=== PATIENT | male | born 1965 | race Two or more races ===

== ENCOUNTER → 2018-07-02 | Outpatient (CLI) | payer OTHER | END | disposition home or self-care (01) | LOC: NUCLEAR 08:30 | DX: C18.0 Malignant neoplasm of cecum (principal); C78.4 Secondary malignant neoplasm of small intestine | CPT/HCPCS: 78815; A9552 ==

== ENCOUNTER → 2019-01-27 | Outpatient (CLI) | payer OTHER | END | disposition home or self-care (01) | LOC: NUCLEAR 01-15 07:00 | DX: C18.0 Malignant neoplasm of cecum (principal); C78.4 Secondary malignant neoplasm of small intestine; Z08 Encounter for follow-up examination after completed treatment for malignant neoplasm | CPT/HCPCS: 78815; A9552 ==

== ENCOUNTER 2019-08-09 15:15 | Emergency (ER) | payer OTHER ==
[~2019-08-09] VITALS: Ht 177.8 cm; Wt 102.5 kg
[2019-08-09] MEDS ORDERED: DICY20TA (15:38)
[2019-08-09] MEDS ORDERED: PEPCID20 MG (15:38)
[2019-08-09] MEDS ORDERED: INTESTINEX680 M1 (15:38)
== END 2019-08-09 19:18 | disposition home or self-care (01) ==
LOC: ER 15:15
DX: K52.9 Noninfective gastroenteritis and colitis, unspecified (principal)

== ENCOUNTER 2019-08-18 17:12 | Emergency (ER) | payer OTHER ==
[~2019-08-18] VITALS: Ht 177.8 cm; Wt 106.6 kg
[~2019-08-18 17:12] MED LIST: DICY20TA; INTESTINEX680 M1; PEPCID20 MG
[2019-08-18] MEDS ORDERED: ONDANSETRON ODT8 MG (17:40)
[2019-08-18] MEDS ORDERED: LEVSIN0.125 MG (17:41)
[2019-08-18] MEDS ORDERED: [UNRECOGNIZED DRUG - OTHER] (17:41)
[2019-08-18] MEDS ORDERED: LOPERAMIDE2 MG (17:42)
[2019-08-18] MEDS ORDERED: ZEGERID OTC 201 EACH (17:42)
== END 2019-08-18 21:07 | disposition home or self-care (01) ==
LOC: ER 17:12
DX: K29.70 Gastritis, unspecified, without bleeding (principal)

== ENCOUNTER 2019-10-21 08:38 | Outpatient (CLI) | payer OTHER ==
[~2019-10-21 08:38] MED LIST changes: +LEVSIN0.125 MG; +LOPERAMIDE2 MG; +ONDANSETRON ODT8 MG; +ZEGERID OTC 201 EACH; +[UNRECOGNIZED DRUG - OTHER]
== END 2019-10-21 10:00 | disposition home or self-care (01) ==
LOC: NUCLEAR 08:38
DX: K31.84 Gastroparesis (principal)
CPT/HCPCS: 78264; A9541

== ENCOUNTER 2019-11-02 07:39 | Inpatient (IN) | payer OTHER ==
[~2019-11-02] VITALS: Ht 177.8 cm; Wt 86.2 kg
[2019-11-02] MEDS ORDERED: SYNTHROID75 MCG PO (08:02)
--- NOTE | 2019-11-02 08:03 | NUR ---
PACIENTE MASCULINO ALERTA Y ORIENTADO. PRESENTANDO VOMITOS Y EN LAS ULTIMAS 24 HORAS A TENIDO MAS DE 10 VOMITOS. LOS SINTOMAS SON DESDE HACE 4 ERICKSON.
--- NOTE | 2019-11-02 09:14 | NUR ---
SE ORIENTA A PTE SOBRE PROCESO DE VENOPUNCION TAMY DE VENOPUNCION, TAMY DE MUESTRAS Y ADMINISTRACION DE MED. PTE REFIERE ENTENDER INF BLAIR POR RN DE TURNO WANG. SE MANTIENE PTE BAJO OBSERVACION RECIBIENDO TRATAMIENTO MEDICO.
--- NOTE | 2019-11-02 15:30 | NUR ---
PACIENTE ALERTA Y ORIENTADO X3. EN POSICION SEMI-SENTADO CON BARANDAS ELEVADAS. SE ADMINISTRA MEDICAMENTOS LORI ORDEN MEDICA. IV FLUID PATENTE Y DEL DE EDEMA Y ERITEMA. SE MANTIENE BAJO OBSERVACON POR CAMBIOS SIGNIFICATIVOS.
--- NOTE | 2019-11-02 21:46 | NUR ---
PACIENTE ALERTA Y ORIENTADO X3. SE ORIENTA SOBRE TX A RECIBIR Y REFIERE ENTENDER. SE ADMINISTRA MEDICAMENTOS LORI ORDEN MEDICA. SE LLAMO A DRA. 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 GONZALEZ. MEDICO REFIERE NO HAY PROBLEMA SE CONTINUARA CON EL OTRO TRATAMIENTO ORDENADO.
--- NOTE | 2019-11-03 06:16 | NUR ---
PTE ALERTA Y ORIENTADO X 3 ESFERAS EN CAMA CON BARANDAS ELEVADAS SIN FAMILIAR ALEXANDR LA NOCHE,AREA DE VEOPUNCION PATENTE Y DEL DE EDEMA CON FLUIDOS DE MANTENIMIETO Y RE-EMPLAZO DE KCL BAJANDO POR IVPUMP,SE EXTRAEN MUESTRAS BAJO MEDIDAS ASEPTICAS,SE LELO BAJO OBSERVACION EN ESPERA DE RE-EVALAUCION DE CHRISTIE GERONIMO.
--- NOTE | 2019-11-03 08:00 | NUR ---
PACIENTE ALERTA Y ORIENTADA POR JEANNETTE ESFERAS EN CAMA. SE OBSERVA PACIENTE CON BUEN PATRON RESPIRATORIO Y PIEL TIBIA AL TACTO. SE OBSERVA IVF'S PATENTE DEL DE EDEMA Y ENROJECIMIENTO BAJANDO UN KCL 40MEQ/100ML @ 5ML/HR. SE COLOCA A PACIENTE A MONITOR CARDIACO CON OXIMETRIA DE PULSO. SE NOTICICA A DR. GRAZYNA MARQUEZOR PANICO EL CUAL ORDENA VIA TELEFONICA MAGNESIO 4GM IV STAT, SE REALIZA READ BACK POR 2 OCASIONES Y SE COLOCA ORDEN MEDICA. SE MANTIENE BAJO OSBSERVACION POR CAMBIOS SIGNIFICATIVOS.
--- NOTE | 2019-11-03 08:26 | NUR ---
SE ADMINISTRA MEDICAMENTOS LORI ORDEN MEDICA Y SE ORIENTA A PACIENTE SOBRE EL MISMO.
[2019-11-09] MEDS ORDERED: CARAFATE1 GM PO (07:50)
[2019-11-09] MEDS ORDERED: CLONAZEPAM1 MG PO (07:50)
[2019-11-09] MEDS ORDERED: PEPCID AC20 MG PO (07:50)
[2019-11-09] MEDS ORDERED: INTESTINEX680 M1 PO (07:50)
[2019-11-09] MEDS ORDERED: ZOFRAN8 MG PO (07:53)
== END 2019-11-09 08:35 | disposition home or self-care (01) | DRG 392 ==
LOC: ER 07:39 → MEDJ 11-03 10:17 → SEC-K 11-03 10:17 → MEDJ 11-03 17:09
PROVIDERS: ADMIT Internal Medicine
DX: K52.89 Other specified noninfective gastroenteritis and colitis (principal); C18.0 Malignant neoplasm of cecum; C78.4 Secondary malignant neoplasm of small intestine; J90 Pleural effusion, not elsewhere classified; E87.6 Hypokalemia; E03.8 Other specified hypothyroidism; K76.0 Fatty (change of) liver, not elsewhere classified; B96.81 Helicobacter pylori [H. pylori] as the cause of diseases classified elsewhere

== ENCOUNTER 2019-11-23 14:30 | Inpatient (IN) | payer OTHER ==
[~2019-11-23] VITALS: Ht 182.9 cm; Wt 84.4 kg
[~2019-11-23 14:30] MED LIST changes: +CARAFATE1 GM PO; +CLONAZEPAM1 MG PO; +INTESTINEX680 M1 PO; +PEPCID AC20 MG PO; +SYNTHROID75 MCG PO; +ZOFRAN8 MG PO
== END 2020-01-01 04:55 | disposition expired | DRG 329 ==
LOC: ER 14:30 → MEDJ 11-24 13:00 → ICU 12-16 15:19 → MEDJ 12-30 20:09
PROVIDERS: ADMIT Internal Medicine
PROC: 30233N1 Transfusion of Nonautologous Red Blood Cells into Peripheral Vein, Percutaneous Approach (ICD-10-PCS; 2019-11-27)
PROC: 4A12X4Z Monitoring of Cardiac Electrical Activity, External Approach (ICD-10-PCS; 2019-11-28)
PROC: 0DJ08ZZ Inspection of Upper Intestinal Tract, Via Natural or Artificial Opening Endoscopic (ICD-10-PCS; 2019-12-03)
PROC: 0DB18ZX Excision of Upper Esophagus, Via Natural or Artificial Opening Endoscopic, Diagnostic (ICD-10-PCS; 2019-12-03)
PROC: 0DB78ZX Excision of Stomach, Pylorus, Via Natural or Artificial Opening Endoscopic, Diagnostic (ICD-10-PCS; 2019-12-03)
PROC: 0DB68ZX Excision of Stomach, Via Natural or Artificial Opening Endoscopic, Diagnostic (ICD-10-PCS; 2019-12-03)
PROC: BW21YZZ Computerized Tomography (CT Scan) of Abdomen and Pelvis using Other Contrast (ICD-10-PCS; 2019-12-06)
PROC: 0DQE0ZZ Repair Large Intestine, Open Approach (ICD-10-PCS; principal; 2019-12-07)
PROC: 0DNE0ZZ Release Large Intestine, Open Approach (ICD-10-PCS; 2019-12-07)
PROC: 0W9G30Z Drainage of Peritoneal Cavity with Drainage Device, Percutaneous Approach (ICD-10-PCS; 2019-12-07)
PROC: 0D9670Z Drainage of Stomach with Drainage Device, Via Natural or Artificial Opening (ICD-10-PCS; 2019-12-08)
PROC: BW28ZZZ Computerized Tomography (CT Scan) of Head (ICD-10-PCS; 2019-12-08)
PROC: BF35ZZZ Magnetic Resonance Imaging (MRI) of Liver (ICD-10-PCS; 2019-12-09)
PROC: BW30ZZZ Magnetic Resonance Imaging (MRI) of Abdomen (ICD-10-PCS; 2019-12-09)
PROC: 4A033R1 Measurement of Arterial Saturation, Peripheral, Percutaneous Approach (ICD-10-PCS; 2019-12-11)
PROC: 30233N1 Transfusion of Nonautologous Red Blood Cells into Peripheral Vein, Percutaneous Approach (ICD-10-PCS; 2019-12-16)
PROC: 3E0436Z Introduction of Nutritional Substance into Central Vein, Percutaneous Approach (ICD-10-PCS; 2019-12-28)
DX: K31.1 Adult hypertrophic pyloric stenosis (principal); A41.9 Sepsis, unspecified organism; R65.21 Severe sepsis with septic shock; I47.1 Supraventricular tachycardia; K63.2 Fistula of intestine; E46 Unspecified protein-calorie malnutrition; K56.50 Intestinal adhesions [bands], unspecified as to partial versus complete obstruction; C78.6 Secondary malignant neoplasm of retroperitoneum and peritoneum; K92.0 Hematemesis; K91.71 Accidental puncture and laceration of a digestive system organ or structure during a digestive system procedure; T81.43XA Infection following a procedure, organ and space surgical site, initial encounter; E86.0 Dehydration; E87.6 Hypokalemia; B96.81 Helicobacter pylori [H. pylori] as the cause of diseases classified elsewhere; F41.9 Anxiety disorder, unspecified; Z66 Do not resuscitate; D69.49 Other primary thrombocytopenia; D53.9 Nutritional anemia, unspecified; K29.60 Other gastritis without bleeding; E03.9 Hypothyroidism, unspecified; E83.39 Other disorders of phosphorus metabolism; Y65.8 Other specified misadventures during surgical and medical care
CPT/HCPCS: 74181